=== PATIENT | male | born 1965 | race Caucasian/White ===

== ENCOUNTER 2019-09-28 22:17 | Emergency (ER) | payer MEDICAID, OTHER ==
[~2019-09-28] VITALS: Ht 185.4 cm; Wt 96.2 kg
--- NOTE | 2019-09-28 22:23 | NUR ---
dr. manning at bedside for MSE
--- NOTE | 2019-09-28 22:25 | NUR ---
pt BIB [facility] 86 from [facility] C/O high BP. a/ox4. able to speak in complete sentences. follows commands respirations even and unlabored afebrile denies pain at this time denies n/v/d pt stated he stopped taking his HTN medications sr up for safety. Bed locked, lowest position. Instructed pt to call nurse for assistance monitored accordingly Will continue to monitor
[2019-09-28] MEDS ORDERED: CLONIDINE HCL 0.1 MG TABLET PO ONE (22:30)
[2019-09-28] MEDS ORDERED: NITROGLYCERIN OINT 1 GM PACKET TP ONE ×2 (22:30→22:37)
[2019-09-28] MEDS ORDERED: CLONIDINE HCL 0.1 MG TABLET ONE (22:38)
[2019-09-28 23:35] LABS: CREATININE 1.3 mg/dL (0.6-1.3); POTASSIUM 3.7 mmol/L (3.5-5.1)
[2019-09-28 23:37] LABS: *BILIRUBIN,URIN 1+ (NEGATIVE); *BLOOD, URINE 1+ (NEGATIVE); *COLOR,URINE YELLOW (YELLOW); *KETONES,URINE 1+ (NEGATIVE); *UROBILINOGEN,URINE 0.2 E.U./dl (NORMAL); LEUKOCYTE ESTERASE ,URINE NEGATIVE (NEGATIVE); NITRITE, URINE NEGATIVE (NEGATIVE); PH,URINE 5.5 (5.0-8.0); UGLUCOSE NEGATIVE (NEGATIVE)
[2019-09-28 23:39] LABS: *CLARITY,URINE HAZY (CLEAR); BASOPHILS % (AUTO) 0.9 % (0.0-2.0); EOSINOPHILS # (AUTO) 0.1 K/uL (0.0-0.7); EOSINOPHILS % (AUTO) 1.7 % (0.0-7.0); HEMATOCRIT 41.4 % (36.7-47.1); HEMOGLOBIN 14.2 g/dL (12.5-16.3); LYMPHOCYTES # (AUTO) 1.3 K/uL (20.0-40.0); LYMPHOCYTES % (AUTO) 32.6 % (20.5-51.5); MEAN CORPUSCULAR HEMOGLOBIN 32.5 uug (23.8-33.4); MEAN CORPUSCULAR HGB CONC 34 g/dL (32.5-36.3); MEAN CORPUSCULAR VOLUME 94.8 fL (73.0-96.2); MONOCYTES # (AUTO) 0.4 K/uL (2.0-10.0); NEUTROPHILS # (AUTO) 2.3 K/uL (1.8-8.9); NEUTROPHILS % (AUTO) 55.8 % (38.5-71.5); PLATELET COUNT (AUTO) 181 K/uL (152-348); RED BLOOD CELL COUNT(AUTO) 4.37 MIL/uL (4.06-5.63); WHITE BLOOD COUNT (AUTO) 4.1 K/uL (3.6-10.2)
[2019-09-28 23:48] LABS: BILIRUBIN,DIRECT 0.3 mg/dL (0.0-0.2); BILIRUBIN,TOTAL 1.3 mg/dL (0.2-1.0); TOTAL PROTEIN, SERUM 7.5 g/dL (6.4-8.2)
[2019-09-28 23:51] LABS: BACTERIA,URINE FEW /HPF (NONE SEEN); SQUAMOUS EPITHELIAL CELL,UR FEW /HPF (NONE SEEN)
[2019-09-28] MEDS ORDERED: LABETALOL HCL 100 MG/20 ML VIAL ONE (23:58)
[2019-09-29] MEDS ORDERED: LABETALOL HCL 100 MG/20 ML VIAL IV ONE
--- NOTE | 2019-09-29 00:50 | NUR ---
Patient discharged to home in stable condition. Written and verbal after care instructions given. Patient verbalizes understanding of instructions. Stressed follow up or return to ER for worsening s/s. A/Ox4. able to speak in complete sentences. Follows commands. Respirations even and unlabored No s/s of cardiovascular distress No s/s of distress Offered taxi ride but pt refused. Pt stated he preferred to walk BP is 148/97. All belongings with pt Ambulate with steady gait
[2019-09-29 01:25] VITALS: BP 148/97
== END 2019-09-29 00:50 | disposition home or self-care (01) ==
LOC: ER 22:23
DX: I11.9 Hypertensive heart disease without heart failure (principal); Z91.14 Patient's other noncompliance with medication regimen; Z59.0 Homelessness
CPT/HCPCS: 36415; 71045; 80048; 80076; 81001; 83880; 84484; 85025; 85730; 87086; 93005; 96374; 99284; J3490; 70030-TC; A4663